=== PATIENT | female | born 1985 | race American Indian/Alaskan Native ===

== ENCOUNTER 2017-01-02 23:21 | Emergency (ER) | payer SELFPAY ==
[2017-01-03] MEDS ORDERED: MAXZIDE-25 PO ONE (01:27)
[2017-01-03 03:44] LABS: Anion Gap 17 mmol/L; BUN/Creatinine Ratio 21.11; Blood Urea Nitrogen 19 mg/dL (7-17); Carbon Dioxide 24 mmol/L (22-30); Chloride 99.1 mmol/L (98-107); Glucose 88 mg/dL (65-100); Potassium 4.1 mmol/L (3.6-5.0); Sodium 136 mmol/L (137-145)
[2017-01-03 03:46] LABS: Basophils % (Auto) 0.6 % (0.0-1.8); Eosinophils % (Auto) 2.7 % (0.0-4.3); Hematocrit 37.9 % (30.3-42.9); Hemoglobin 12.6 gm/dl (10.1-14.3); Mean Corpuscular HGB Conc 33 % (30-34); Mean Corpuscular Hemoglobin 28 pg (28-32); Mean Corpuscular Volume 84 fl (79-97); Platelet Count 273 K/mm3 (140-440); Red Blood Count 4.51 M/mm3 (3.65-5.03); Red Cell Distribution Width 14.2 % (13.2-15.2); White Blood Count 5.8 K/mm3 (4.5-11.0)
[2017-01-03] MEDS ORDERED: CATAPRES PO ONE (06:58)
[2017-01-03 07:59] VITALS: BP 158/100
--- NOTE | 2017-01-03 08:12 | Emergency Department Report ---
HPI - General Chief Complaint: High BP Time Seen by Provider: 01/03/17 07:40 - HPI HPI: Patient here for refill of hypertension meds that she has been out of for a little over a week. Patient denies any symptoms associated with not taking her blood pressure medicine for the past 10 days. Patient denies headache, blurred vision, chest pain, shortness of breath, dizziness, nausea vomiting, neck pain, or any neurological symptoms. ED Past Medical Hx - Past Medical History Previous Medical History?: Yes Hx Hypertension: Yes - Surgical History Past Surgical History?: Yes Additional Surgical History: c sect X4 - Social History Smoking Status: Current Every Day Smoker Substance Use Type: None - Medications Home Medications: Home Medications Medication Instructions Recorded Confirmed Last Taken Type Triamter/Hctz 37.5-25 mg 1 tab PO QDAY #30 tablet 01/03/17 Unknown Rx [Maxzide-25] ED Review of Systems ROS: Stated complaint: HIGH BLOOD PRESSURE Other details as noted in HPI Constitutional: denies: chills, fever Eyes: denies: eye pain, eye discharge, vision change ENT: denies: ear pain, throat pain Respiratory: denies: cough, shortness of breath, wheezing Cardiovascular: denies: chest pain, palpitations, dyspnea on exertion, orthopnea , edema, syncope, paroxysmal nocturnal dyspnea Endocrine: no symptoms reported Gastrointestinal: denies: abdominal pain, nausea, vomiting, diarrhea, hematemesis, melena, hematochezia Genitourinary: denies: urgency, dysuria, discharge Musculoskeletal: denies: back pain, joint swelling, arthralgia Skin: denies: rash, lesions Neurological: denies: headache, weakness, paresthesias Psychiatric: denies: anxiety, depression Hematological/Lymphatic: denies: easy bleeding, easy bruising Physical Exam - Physical Exam Vital Signs: Vital Signs 01/03/17 01/03/17 01/03/17 01:13 01:20 04:07 Temperature 98.1 F 98.1 F Pulse Rate 70 63 63 Respiratory 18 18 14 Rate Blood Pressure 186/136 187/113 Blood Pressure 158/122 [Right] O2 Sat by Pulse 100 100 100 Oximetry 01/03/17 01/03/17 01/03/17 07:06 07:07 07:58 Temperature 97.8 F Pulse Rate 65 65 61 Respiratory 16 Rate Blood Pressure 170/98 Blood Pressure 170/98 158/100 [Right] O2 Sat by Pulse 100 99 Oximetry General: Patient's awake alert and oriented, PERRLA, EOMI, moist oral mucosa, no nuchal rigidity, no cervical adenopathy, bilateral breath sounds clear to auscultation , abdomen soft nontender, no rigidity, no pulsatile mass, back is normal with no CVA tenderness and full range of motion, patient's gait is normal, patient's moving all extremities with good cap refill, no pedal edema noted. Patient hypertensive on triage. Patient given 0.1 of clonidine, waiting B P to normalized before med refill and discharge. ED Course Vital Signs 01/03/17 01/03/17 01/03/17 01:13 01:20 04:07 Temperature 98.1 F 98.1 F Pulse Rate 70 63 63 Respiratory 18 18 14 Rate Blood Pressure 186/136 187/113 Blood Pressure 158/122 [Right] O2 Sat by Pulse 100 100 100 Oximetry 01/03/17 01/03/17 01/03/17 07:06 07:07 07:58 Temperature 97.8 F Pulse Rate 65 65 61 Respiratory 16 Rate Blood Pressure 170/98 Blood Pressure 170/98 158/100 [Right] O2 Sat by Pulse 100 99 Oximetry ED Medical Decision Making - Lab Data Result diagrams: 01/03/17 03:11 01/03/17 03:11 Critical care attestation.: If time is entered above; I have spent that time in minutes in the direct care of this critically ill patient, excluding procedure time. ED Disposition Clinical Impression: Hypertension, Medication refill Disposition: DISCHARGED TO HOME OR SELFCARE Is pt being admited?: No Condition: Stable Instructions: Hypertension (ED) Prescriptions: Triamter/Hctz 37.5-25 mg [Maxzide-25] 1 tab PO QDAY #30 tablet Referrals: PRIMARY CARE, [Primary Care Provider] - 3-5 Days Forms: Work/School Release Form(ED)
== END 2017-01-03 08:35 | disposition home or self-care (01) ==
LOC: ED 23:21
DX: Z76.0 Encounter for issue of repeat prescription (principal); I10 Essential (primary) hypertension; F17.200 Nicotine dependence, unspecified, uncomplicated
CPT/HCPCS: 36415; 80048; 84484; 85025; 99284